=== PATIENT | female | born 1955 | race Caucasian/White ===

== ENCOUNTER → 2017-02-21 | Outpatient (CLI) | payer BC ==
[~2017-02-21] MED LIST: ADVIL200 MG PO; COMPLETE SENIOR1 TA1 PO; COSAMIN DS 4001 TAB PO; VITAMIN D 400400 IU PO
== END ==
LOC: COL.RAD 07:12
DX: R19.8 Other specified symptoms and signs involving the digestive system and abdomen (principal)

== ENCOUNTER → 2017-07-03 | Outpatient (CLI) | payer BC | LOC: COL.RAD 07:36 | DX: Z01.89 Encounter for other specified special examinations (principal) ==

== ENCOUNTER → 2017-07-05 | Outpatient (CLI) | payer BC | LOC: COL.RAD 09:42 | DX: K57.50 Diverticulosis of both small and large intestine without perforation or abscess without bleeding (principal); K86.89 Other specified diseases of pancreas | CPT/HCPCS: Q9967 ==

== ENCOUNTER → 2017-07-27 | Outpatient (CLI) | payer BC | LOC: MC.RAD 07:00 | DX: Z12.31 Encounter for screening mammogram for malignant neoplasm of breast (principal) ==

== ENCOUNTER → 2018-07-30 | Outpatient (CLI) | payer BC | LOC: MC.RAD 07:00 | DX: Z12.31 Encounter for screening mammogram for malignant neoplasm of breast (principal) ==

== ENCOUNTER 2019-03-22 23:56 | Emergency (ER) | payer BC ==
[~2019-03-22] VITALS: Ht 154.9 cm; Wt 52.3 kg
[2019-03-22 23:59] VITALS: TEMP 97.7
[2019-03-23 00:57] LABS: BASO # 0.1 (0.0-0.2); BASO % 0.8 % (0.0-2.0); EOS # 0.1 (0.0-0.7); GRAN # 6.8 (1.4-6.5); HEMOGLOBIN 14.8 g/dl (12.5-16.0); LYMPH # 2.6 (1.2-3.4); MEAN CELL VOLUME 96 fl (80.0-100.0); MEAN CORPUSCULAR HEMOGLOBIN 32 pg (27.0-31.0); MEAN CORPUSCULAR HGB CONC 34 g/dl (33.0-37.0); MONO # 0.7 (0.1-0.6); MONO % 6.9 % (1.7-9.3); PLATELET COUNT 207 K/mm3 (130-400); RED BLOOD COUNT 4.59 M/mm3 (4.10-5.30); REDCELL DISTRIBUTION WIDTH-CV 12.6 % (11.5-14.5)
[2019-03-23 01:08] LABS: ALANINE AMINOTRANSFERASE 12 U/L (9-52); ALBUMIN 4.3 gm/dL (3.5-5.0); ALCOHOL(ethanol),MEDICAL 224 mg/dL; ALKALINE PHOSPHATASE 103 U/L (50-136); ANION GAP 13 mmol/L (7-16); AST,SGOT 36 U/L (15-37); BILIRUBIN,TOTAL 0.4 mg/dL (0.0-1.0); BLOOD UREA NITROGEN 15 mg/dL (7-17); CALCIUM 9.9 mg/dL (8.4-10.2); CARBON DIOXIDE 28 mmol/L (22-30); CHLORIDE 102 mmol/L (98-107); GLUCOSE 91 mg/dL (74-106); POTASSIUM 3.8 mmol/L (3.4-5.0); SODIUM 142 mmol/L (137-145); TOTAL PROTEIN 7.2 gm/dL (6.4-8.2)
[2019-03-23 01:27] LABS: TROPONIN-I < 0.012 ng/mL (0.000-0.035)
[2019-03-23] MEDS ORDERED: CEPHALEXIN500 M1 PO (02:21)
[2019-03-23 02:22] VITALS: BP 124/72; PULSE 82
== END 2019-03-23 02:36 | disposition home or self-care (01) ==
LOC: COL.ER 23:56
PROVIDERS: Emergency Medicine
DX: S01.01XA Laceration without foreign body of scalp, initial encounter (principal); S01.81XA Laceration without foreign body of other part of head, initial encounter; F10.129 Alcohol abuse with intoxication, unspecified; Z23 Encounter for immunization; F17.210 Nicotine dependence, cigarettes, uncomplicated; W19.XXXA Unspecified fall, initial encounter; W22.8XXA Striking against or struck by other objects, initial encounter; Y90.7 Blood alcohol level of 200-239 mg/100 ml
CPT/HCPCS: J0690

== ENCOUNTER → 2019-09-24 | Outpatient (CLI) | payer BC ==
[~2019-09-24] MED LIST changes: +CEPHALEXIN500 M1 PO
== END ==
LOC: MC.RAD 07:45
DX: Z12.31 Encounter for screening mammogram for malignant neoplasm of breast (principal)

== ENCOUNTER → 2020-10-06 | Outpatient (CLI) | payer MEDICARE | LOC: MC.RAD 08:15 | DX: Z12.31 Encounter for screening mammogram for malignant neoplasm of breast (principal) ==

== ENCOUNTER → 2022-12-23 | Outpatient (CLI) | payer MEDICARE, OTHER | LOC: MC.RAD 14:20 | DX: Z12.31 Encounter for screening mammogram for malignant neoplasm of breast (principal); Z80.3 Family history of malignant neoplasm of breast ==

== ENCOUNTER → 2023-12-25 | Outpatient (CLI) | payer MEDICARE, OTHER | LOC: MC.RAD 07:48 | DX: Z12.31 Encounter for screening mammogram for malignant neoplasm of breast (principal) ==